=== PATIENT | female | born 1990 | race Caucasian/White ===

== ENCOUNTER 2021-11-03 08:37 | Outpatient (REF) | payer OTHER, SELFPAY ==
[2021-11-03 09:21] LABS: MANUAL DIFF FLAG NO
[2021-11-03 10:01] LABS: Basophils Percent Auto 0.4 % (0-2); Eosinophils Absolute Auto 0.1 X10*3/uL (0.0-0.4); Eosinophils Percent Auto 1.5 % (0-4); Hematocrit 38.1 % (37.0-47.0); Hemoglobin 12.4 g/dl (12.0-16.0); Imm Gran Abs Auto 0.02 X10*3/uL (0.00-0.03); Imm Gran Pct Auto 0.3 % (0.0-0.4); Lymphocytes Absolute Auto 1.4 X10*3/uL (1.2-4.9); Lymphocytes Percent Auto 19.9 % (20-40); Mean Corpuscular HGB Conc 32.5 g/dl (31.0-35.0); Mean Corpuscular Hemoglobin 29.2 pg (27.0-33.0); Mean Corpuscular Volume 89.6 fL (80.0-98.0); Monocytes Absolute Auto 0.5 X10*3/uL (0.1-1.2); Monocytes Percent Auto 7.2 % (2-11); Neutrophils Absolute Auto 4.8 x10*3/uL (2.0-8.3); Neutrophils Percent Auto 70.7 % (45-73); Platelet Count 228 X10*3/uL (160-400); Red Blood Count 4.25 X10*6/uL (4.20-5.50); Red Cell Distribution Width 12.9 % (11.0-16.0); White Blood Count 6.8 X10*3/uL (4.8-10.8)
[2021-11-03 10:18] LABS: HCG Quantitative < 2 mIU/mL
[2021-11-03 10:19] LABS: Alanine Aminotransferase 27 U/L (0-31); Alkaline Phosphatase 65 U/L (39-117); Anion Gap 12 (12-20); Aspartate Amino Transferase 22 U/L (5-31); Bilirubin Total 0.5 mg/dL (0.0-1.0); Blood Urea Nitrogen 25 mg/dL (9-16); Calcium 8.9 mg/dL (8.4-10.2); Carbon Dioxide 26 mmol/L (22-29); Chloride 106 mmol/L (96-108); Cholesterol 156 mg/dL; Estimated Glomerular Filt Rate > 60; Glucose Random 88 mg/dL (60-115); HDL Cholesterol 54 mg/dL; LDL Cholesterol Calculated 95 mg/dl; Potassium 4.2 mmol/L (3.3-5.1); Sodium 140 mmol/L (135-145); Total Protein 6.9 g/dL (6.5-8.0); Triglycerides 38 mg/dL
[2021-11-03 11:26] LABS: Glucose 1 Hour 111 mg/dL
[2021-11-03 11:29] LABS: Glucose 2 Hour 101 mg/dL
[2021-11-03 11:40] LABS: Glucose Fasting 89 mg/dL (60-99)
[2021-11-05 17:07] LABS: LDL Cholesterol Direct 83 mg/dL (<100)
[2021-11-05 17:37] LABS: Follicle Stimulating Hormone 4.1 mIU/mL; Lutenizing Hormone 19.2 mIU/mL; Sex Hormone Binding Globulin 22 nmol/L (17-124)
[2021-11-08 14:03] LABS: Testosterone, Free 3.3 pg/mL (0.1-6.4); Testosterone, Total 20 ng/dL (2-45)
[2021-11-09 03:17] LABS: Estradiol Ultra Sensitive 137 pg/mL
== END 2021-11-03 08:38 | disposition home or self-care (01) ==
LOC: HO.LAB 08:37
PROVIDERS: Visit Provider Internal Medicine
DX: F64.0 Transsexualism (principal); Z79.899 Other long term (current) drug therapy
CPT/HCPCS: 36415; 80053; 80061; 82670; 83001; 83002; 83721; 84270; 84402; 84403; 84702; 85025

== ENCOUNTER 2022-01-29 07:13 | Outpatient (REF) | payer OTHER, SELFPAY ==
[2022-01-29 07:28] LABS: MANUAL DIFF FLAG NO
[2022-01-29 08:11] LABS: Basophils Absolute Auto 0.1 X10*3/uL (0.0-0.2); Basophils Percent Auto 0.7 % (0-2); Eosinophils Absolute Auto 0.1 X10*3/uL (0.0-0.4); Eosinophils Percent Auto 1.7 % (0-4); Hematocrit 38.6 % (37.0-47.0); Hemoglobin 12.3 g/dl (12.0-16.0); Imm Gran Abs Auto 0.03 X10*3/uL (0.00-0.03); Imm Gran Pct Auto 0.4 % (0.0-0.4); Lymphocytes Absolute Auto 1.7 X10*3/uL (1.2-4.9); Lymphocytes Percent Auto 20.6 % (20-40); Mean Corpuscular HGB Conc 31.9 g/dl (31.0-35.0); Mean Corpuscular Hemoglobin 27.5 pg (27.0-33.0); Mean Corpuscular Volume 86.2 fL (80.0-98.0); Mean Platelet Volume 10.1 fL (9.4-12.3); Monocytes Absolute Auto 0.5 X10*3/uL (0.1-1.2); Monocytes Percent Auto 5.9 % (2-11); Neutrophils Absolute Auto 5.9 x10*3/uL (2.0-8.3); Neutrophils Percent Auto 70.7 % (45-73); Platelet Count 248 X10*3/uL (160-400); Red Blood Count 4.48 X10*6/uL (4.20-5.50); Red Cell Distribution Width 13.8 % (11.0-16.0); White Blood Count 8.4 X10*3/uL (4.8-10.8)
[2022-02-06 19:23] LABS: Testosterone, Total 371 ng/dL (2-45)
== END 2022-01-29 07:14 | disposition home or self-care (01) ==
LOC: HO.LAB 07:13
PROVIDERS: Visit Provider Internal Medicine
DX: F64.0 Transsexualism (principal); Z79.899 Other long term (current) drug therapy
CPT/HCPCS: 36415; 84402; 84403; 85025

== ENCOUNTER → 2022-02-06 13:28 | Outpatient (BNVA) | payer OTHER, SELFPAY | PROVIDERS: Visit Provider Internal Medicine | DX: F64.0 Transsexualism (principal) ==

== ENCOUNTER 2022-02-07 09:12 | Outpatient (REF) | payer OTHER, SELFPAY ==
[2022-02-09 18:04] LABS: Sex Hormone Binding Globulin 18 nmol/L (17-124)
[2022-02-14 01:28] LABS: Estradiol Ultra Sensitive 60 pg/mL
[2022-02-15 16:13] LABS: Testosterone, Free 93.3 pg/mL (0.1-6.4); Testosterone, Total 432 ng/dL (2-45)
== END 2022-02-07 09:13 | disposition home or self-care (01) ==
LOC: HO.LAB 09:12
PROVIDERS: PCP Nurse Practitioner Family; Visit Provider Internal Medicine
DX: F64.0 Transsexualism (principal); Z79.899 Other long term (current) drug therapy
CPT/HCPCS: 36415; 82670; 84270; 84402; 84403

== ENCOUNTER 2022-04-22 08:23 | Outpatient (REF) | payer OTHER, SELFPAY ==
[2022-04-27 23:49] LABS: Estradiol Ultra Sensitive 31 pg/mL
[2022-04-30 13:28] LABS: Testosterone, Free 100.7 pg/mL (0.1-6.4); Testosterone, Total 329 ng/dL (2-45)
== END 2022-04-22 08:24 | disposition home or self-care (01) ==
LOC: HO.LAB 08:23
PROVIDERS: PCP Nurse Practitioner Family; Visit Provider Internal Medicine
DX: F64.0 Transsexualism (principal); Z79.899 Other long term (current) drug therapy
CPT/HCPCS: 36415; 82670; 84402; 84403

== ENCOUNTER → 2022-05-08 11:15 | Outpatient (BNVA) | payer OTHER, SELFPAY | PROVIDERS: PCP Nurse Practitioner Family; Visit Provider Internal Medicine | DX: Z13.89 Encounter for screening for other disorder (principal) ==

== ENCOUNTER → 2022-05-23 14:01 | Outpatient (BNVA) | payer OTHER, SELFPAY | PROVIDERS: PCP Nurse Practitioner Family; Visit Provider Dietitian, Registered | DX: E66.9 Obesity, unspecified (principal); Z71.3 Dietary counseling and surveillance | CPT/HCPCS: 97802 ==

== ENCOUNTER 2022-07-29 09:34 | Outpatient (REF) | payer OTHER, SELFPAY ==
[2022-08-04 18:59] LABS: Testosterone, Free 150.5 pg/mL (0.1-6.4); Testosterone, Total 463 ng/dL (2-45)
== END 2022-07-29 09:35 | disposition home or self-care (01) ==
LOC: HO.LAB 09:34
PROVIDERS: Internal Medicine; PCP Nurse Practitioner Family; Visit Provider Nurse Practitioner Family
DX: F64.0 Transsexualism (principal); Z79.899 Other long term (current) drug therapy
CPT/HCPCS: 36415; 84402; 84403

== ENCOUNTER → 2022-08-14 07:53 | Outpatient (BNVA) | payer OTHER, SELFPAY | PROVIDERS: PCP Nurse Practitioner Family; Visit Provider Internal Medicine ==

== ENCOUNTER 2022-09-28 07:52 | Outpatient (REF) | payer OTHER, SELFPAY ==
[2022-10-03 13:34] LABS: Testosterone, Total 573 ng/dL (2-45)
== END 2022-09-28 07:53 | disposition home or self-care (01) ==
LOC: HO.LAB 07:52
PROVIDERS: PCP Physician Assistant Medical; Visit Provider Internal Medicine
DX: F64.9 Gender identity disorder, unspecified (principal); Z79.899 Other long term (current) drug therapy
CPT/HCPCS: 36415; 84402; 84403

== ENCOUNTER 2022-10-14 12:06 | Outpatient (AMB) | payer OTHER, SELFPAY ==
--- NOTE | 2022-10-14 12:06 | MHC.OFFVIS ---
Intake Intake Visit Reasons: Routine 2-3 month follow up on testosterone Intake Note: Testosterone follow up. [employer] Required: No Allergies bee pollen [Bee Stings] Allergy (Unknown, Verified 10/14/22 12:37) UNKNOWN soy [SOY] Allergy (Unknown, Verified 10/14/22 12:37) UNKNOWN Pt states no known allergy to Allergy (Unknown, Uncoded 10/14/22 12:37) Unknown Medication List - Last Reconciled 10/14/22 by Lidya Carter DO insulin syringe,safetyneedle (Assure ID Insulin Safety) Use with testosterone once a week testosterone cypionate 75 mg (0.375 mL) IM QWEEK 30 days HPI HPI Comments History of Present Illness Details 32 YO Transgender male who is seen in F/U. He has been followed by a certified mental health provider for many years. He has an official diagnosis of gender dysphoria and has been deemed to have the capacity to make well informed decisions. All of his medical conditions are currently under good control. He has socially transitioned and has been living as a male within his social [place] as well as at work. After our last visit he was started on Testosterone cypionate 75 mg IM once per week. He adminsiters himself at home every friday. Testosterone levels are low normal male range currently. He is tolerating this well and denies any signs/symptoms of blood clot. Facial hair has increased and he is happy with this development. Libido has also increased. He denies any history of CAD, HLD, anxiety or depression. He has no known family history of CAD. He is UTD on his screenings with cervical Pap. Not of age for routine screening mammograms as of yet. Labs: Laboratory Tests 09/28/22 08:05 Total Testosterone 573 H Fr Testosterone Di merlene 161.0 H PFSH Medical History Obesity Transgender man on hormone therapy Surgical History No pertinent past surgical history Family History Father Heart disease Mother Diabetes Social History Alcohol intake: never Patient Tobacco Use Status: Never used Tobacco Assessment & Plan Assessment & Plan (1) Transgender man on hormone therapy: Code(s): F64.0 - Transsexualism; Z79.899 - Other superintendent [employer] (current) drug therapy Plan: Enmanuel has a well established diagnosis of gender dysphoria and has socially transitioned and living as a man. I see no contraindication to hormonal therapy at this time. He remains on Testosterone cypionate 75 mg q 1 week. Will continue. He is planning to transition care to [place]. Planning for top surgery this coming year. I have provided 5 months of refills to bridge him until his next visit as he is establishing care with a new provider. We did review the potential side effects of polycythemia vera, hyperlipidemia and heart disease (with corresponding heart attack and stroke). All questions were answered. I spent 20 minutes in reviewing the record, seeing the patient and documenting in the medical record, including 5 minutes on the phone with the Patient. (2) Obesity: Code(s): E66.9 - Obesity, unspecified Plan: Patient with obesity. 2 hour OGTT WNL. Will continue to encourage lifestyle intervention. Medications: Refilled testosterone cypionate 75 mg (0.375 mL) IM QWEEK 30 days 2 mL 5RF insulin syringe,safetyneedle (Assure ID Insulin Safety) Use with testosterone once a week 100 ea 0RF Telehealth Telehealth Location of provider rendering services: practice address Location of patient: address on file Patient Identification confirmed using: Name, : Yes Telehealth method: voice only Patient verbally consented to treatment: Yes Patient verbally consented to billing insurance company: Yes Patient informed of any privacy concerns related to visit: Yes Coding Level of Care Code Tele Est Pt Level 3 (95647) Diagnoses Transgender man on hormone therapy F64.0; Z79.899 Obesity E66.9
== END 2022-10-14 12:49 | disposition home or self-care (01) ==
LOC: HO.ENCR 12:06
PROVIDERS: PCP Physician Assistant Medical; Visit Provider Internal Medicine
DX: F64.0 Transsexualism (principal); Z79.899 Other long term (current) drug therapy; E66.9 Obesity, unspecified
CPT/HCPCS: 99213

== ENCOUNTER → 2022-10-14 12:06 | Outpatient (BNVA) | payer OTHER, SELFPAY | PROVIDERS: PCP Physician Assistant Medical; Visit Provider Internal Medicine ==